=== PATIENT | female | born 1985 | race Caucasian/White ===

== ENCOUNTER → 2023-05-20 07:44 | Outpatient (REF) | payer BC, SELFPAY | LOC: RAD 07:44 | PROVIDERS: ATTENDING PHYSICIAN Emergency Medicine | DX: I10 Essential (primary) hypertension (principal) | CPT/HCPCS: 93975 ==

== ENCOUNTER 2024-06-27 20:26 | Day surgery (SDC) | payer BC, SELFPAY ==
[2024-06-27 12:37] VITALS: BP 132/87
[2024-06-27 13:04] LABS: % Basophils 0.4 % (0-2); % Eosinophils 1.2 % (0-6); % Immature Granulocytes 0.2 % (0-0.5); % Lymphocytes 15.6 % (20.5-51.1); % Monocytes 6.7 % (1.7-9.3); % Neutrophils 75.9 % (42.2-75.2); Absolute Basophils 0.1 10^3/uL (0-0.2); Absolute Eosinophils 0.2 10^3/uL (0-0.7); Absolute Lymphocytes 1.9 10^3/uL (1.2-3.4); Absolute Monocytes 0.8 10^3/uL (0.1-0.6); Absolute Neutrophils 9.4 10^3/uL (1.4-6.5); Hematocrit 40.7 % (37.0-47.0); Hemoglobin 14.1 g/dL (12.0-16.0); Mean Corp Hgb Conc. 34.6 g/dL (33.0-37.0); Mean Corpuscular Hgb 28.8 pg (27.0-31.0); Mean Corpuscular Volume 83.2 fL (81.0-99.0); Mean Platelet Volume 10.3 fL (7.4-10.4); Nucleated Red Blood Cells % 0 %; Platelet Count 296 10^3/uL (130-400); Red Blood Cell Count 4.89 10^6/uL (4.20-5.40); Red Cell Dist. Width 13.2 % (11.5-14.5); White Blood Cell Count 12.3 10^3/uL (4.8-10.8)
[2024-06-27 13:14] LABS: HCG, Serum Qualitative Screen Negative; Urine Albumin Negative (Neg - Trace); Urine Bilirubin Negative (Negative); Urine Character Clear (Clear); Urine Color Yellow; Urine Glucose Negative (Negative); Urine Ketone Negative (Negative); Urine Leukocyte 2+ (Negative); Urine Nitrite Negative (Negative); Urine Occult Blood 2+ (Negative); Urine Urobilinogen Negative (Neg - 1+)
[2024-06-27 13:23] LABS: ALT (SGPT) 197 U/L (0-35); AST (SGOT) 290 U/L (14-36); Albumin 4.6 g/dl (3.5-5.0); Alkaline Phosphatase 143 U/L (38-126); Blood Urea Nitrogen 13 mg/dl (7-17); Calcium 9.6 mg/dl (8.4-10.2); Carbon Dioxide 25 mmol/L (22-30); Glucose 102 mg/dl (70-99); Lipase 316 U/L (23-300); Total Bilirubin 1.2 mg/dl (0.2-1.3); eGFR > 60.00
[2024-06-27 13:36] LABS: Chloride 105 mmol/L (98-107); Potassium 3.9 mmol/L (3.5-5.1); Sodium 142 mmol/L (135-145)
[2024-06-27 14:06] LABS: Total Protein 7.9 g/dl (6.3-8.2)
[2024-06-27 14:20] LABS: Urine Squamous Cell >30 /LPF (Few)
[2024-06-27 14:21] LABS: Urine Urothelial Cell 0-2 /LPF (FEW)
[2024-06-27 14:22] LABS: Urine White Cell 16-20 /HPF (0-5)
[2024-06-27 14:23] LABS: Urine Bacteria Few (Negative); Urine Red Blood Cell 0-2 /HPF (0-2)
--- NOTE | 2024-06-27 15:30 | ED.GENMED ---
History of Present Illness
General
Chief Complaint: Abdominal Symptoms
Time Seen by Provider: 06/27/24 15:30
History of Present Illness
History of Present Illness:
TIME OF INITIAL ENCOUNTER: 3:30 PM
HPI: 3 days ago, the patient had rather significant epigastric discomfort. At times she has pain that radiates to both shoulder blades. This morning she had 2 episodes of similar pains. Currently she feels improved. Of note she is on Zepbound.
She did vomit once recently that she feels is related to Zepbound use. No fevers. No prior abdominal surgeries.
EXAM:
GENERAL: Well appearing in no distress, elevated BMI
HEENT: Moist oral mucosa
CARDIOVASCULAR: No murmurs, normal heart rate, regular rhythm, No chest wall tenderness
PULMONARY: No respiratory distress, breath sounds are clear and equal
ABDOMEN: Soft with no peritoneal signs, no significant tenderness, negative Akhtar sign
NEUROLOGIC: Excellent strength all extremities, no coordination deficits
PSYCHIATRIC: Appropriate mental status, normal insight and judgement
EXTREMITIES: Nontender, no edema, moves all extremities equally
SKIN: No rash, no lesions
NUMBER AND COMPLEXITY OF PROBLEMS ADDRESSED AT THE ENCOUNTER
� Chronic conditions affecting care: Anxiety, hyperlipidemia, on Zepbound
� Acute Exacerbation and/or Progression of Chronic Illness: This is an acute problem
� Differential Diagnosis includes: Medication side effect (on Zepbound), GERD, biliary colic, cholecystitis
AMOUNT AND/OR COMPLEXITY OF DATA TO BE REVIEWED AND ANALYZED
� I performed an independent evaluation of and my interpretation is:
EKG:
CT:
X-rays:
Laboratory Studies: White count 12.3, hemoglobin normal, chemistries show elevated transaminases with alk phos of 143, lipase minimally elevated at 316, hCG negative, urinalysis appears to be contaminated however repeat
urinalysis does not show any clear sign of infection
Other: Ultrasound shows numerous gallstones with some gallbladder wall thickening
� Review of other/old records: I reviewed records, the patient was admitted here with hypertension on magnesium in 2019
� Clinical information was obtained by an independent historian: None needed
� Prescriptions/Medications Considered but not given:
� Further testing considered but not performed:
RISK OF COMPLICATIONS AND/OR MORBIDITY OR MORTALITY OF PATIENT MANAGEMENT
� Social determinants of health affecting care: Lives at home
� Discussion with other providers: Discussed case with Dr. Young who ultimately accepts to his service for further management. He recommends clears and then n.p.o. after midnight, Zosyn (however will give Cipro/Flagyl as
patient has a penicillin allergy)
� Escalation of care including admission/observation vs risk of discharge considered: The patient's labs show elevated transaminases with borderline lipase and alk phos. Ultrasound imaging will be obtained. She appears
comfortable currently but had 3 episodes of upper abdominal pain radiating to the back over the last 3 days.
ANY OTHER UPDATES:
Past History
Past History
ED Past Medical History: None
Social History
Tobacco: Non-smoker
Personal:
Phy Exam
Physical Exam
Physical Exam:
See HPI
Course
Orders/Labs/Results
Orders:
Orders
06/27/24 12:42
Test Result ONCE
06/27/24 12:50
Complete Blood Count/With Diff Urgent
Comprehensive Metabolic Panel Urgent
HCG, Serum Qualitative Screen Urgent
Comment: Notify provider if positive test present
Lipase Urgent
Urinalysis Reflex To Culture Urgent
Date Specimen was Collected: 06/27/24
Time Specimen was Collected: 12:42
Urine Microscopic Reflex Cult Urgent
Urine Culture Urgent
DA Source: U
Specimen Description:
Date Specimen was Collected: 06/27/24
Time Specimen was Collected: 12:42
06/27/24 Dinner
Clear Liquid
At Your Request: Non-Participating
Does patient need a safe tray?: No
06/27/24 15:38
US Abdomen Complete/Upper Urgent
Comment:
Reason For Exam: epigastric pain; abnormal lfts
06/27/24 15:46
Urinalysis Reflex To Culture Urgent
Date Specimen was Collected: 06/27/24
Time Specimen was Collected: 15:43
Comment: REPEAT TEST ORDERED BY ER
Urine Microscopic Reflex Cult Urgent
06/27/24 18:20
Ciprofloxacin 400 mg/[id number] [Cipro 400 mg] 200 ml IV NOW
MetroNIDAZOLE 500 MG/100 ML [Flagyl 500 mg] 100 ml IV NOW
Abnormal Lab Results
06/27/24 06/27/24
12:50 15:46
WBC 12.3 H 10^3/uL
(4.8-10.8)
Absolute Neuts (auto) 9.4 H 10^3/uL
(1.4-6.5)
Absolute Monos (auto) 0.8 H 10^3/uL
(0.1-0.6)
Neutrophils % 75.9 H %
(42.2-75.2)
Lymphocytes % 15.6 L %
(20.5-51.1)
Glucose 102 H mg/dl
(70-99)
AST 290 H U/L
(14-36)
ALT 197 H U/L
(0-35)
Alkaline Phosphatase 143 H U/L
(38-126)
Lipase 316 H U/L
(23-300)
Ur Occult Blood Reflex 2+ A 1+ A
(Negative) (Negative)
Leukocyte Esterase Rfl 2+ A
(Negative)
Urine RBC 3-6 A /HPF
(0-2)
Urine WBC (Reflex) 16-20 A /HPF
(0-5)
Urine Bacteria (Reflex) Few A Few A
(Negative) (Negative)
Urine Albumin (Reflex) 1+ A
(Neg - Trace)
06/27/24 12:50
06/27/24 12:50
Vital Signs
Initial and Last Documented VS:
Initial Vital Signs
Temp Pulse Resp BP Pulse Ox
36.9 C 74 16 132/87 100
06/27/24 12:37 06/27/24 12:37 06/27/24 12:37 06/27/24 12:37 06/27/24 12:37
Last Documented Vital Signs
Temp Pulse Resp BP Pulse Ox
36.9 C 67 17 134/87 100
06/27/24 15:48 06/27/24 17:51 06/27/24 17:51 06/27/24 17:51 06/27/24 17:51
*Critical Care Note
Total Time (30-74mins, 75-104mins- exclusive of procedures): Not Applicable
ED Attending Note
-
Portions of this chart may have been created with voice recognition software.� Occasional wrong word or��sound alike� substitutions may have occurred due to the inherent limitations of voice recognition software.
Discharge Plan
Departure
Patient Disposition: Admit
Date of Disposition: 06/27/24
Time of Disposition: 18:21
Presentation/result/management discussed w/ accepting MD/DO: dr young
Discharge Problem:
Calculous cholecystitis
Prescriptions:
No Action
Theragen Tablet
1 tab PO DAILY
amlodipine 5 mg Tablet
5 mg PO DAILY
biotin 1 mg Tablet
1 mg PO DAILY
Zepbound 5 mg/0.5 mL Pen Injector
5 mg SC SA
Patient Comments:
06/27/24: Patient skipped dose last thursday(06/25/24) due to symptoms
Referrals:
Sondra High MD [Family Provider] -
Interventions
Interventions:
*Risk Screen - Suicide Last Done: 06/27/24 12:37
*General Assessment Last Done: 06/27/24 15:50
*Neglect/Abuse Screening Last Done: 06/27/24 12:37
*ED- Fall Risk Assessment Last Done: 06/27/24 15:50
*ED COVID-19 Vaccine History Last Done: 06/27/24 15:50
LL-Eehsqh-Qjshrvlmaa Assessment Last Done: 06/27/24 15:51
Discharge Date and Time
Print Language: BELARUSIAN
[2024-06-27 15:47] VITALS: BMI 37.5
[2024-06-27 15:48] VITALS: BP 126/86
[2024-06-27 15:59] LABS: Urine Albumin 1+ (Neg - Trace); Urine Bilirubin Negative (Negative); Urine Character Clear (Clear); Urine Color Yellow; Urine Glucose Negative (Negative); Urine Ketone Negative (Negative); Urine Leukocyte Negative (Negative); Urine Nitrite Negative (Negative); Urine Occult Blood 1+ (Negative); Urine Specific Gravity 1.015 (<1.030); Urine Urobilinogen Negative (Neg - 1+)
[2024-06-27 16:25] LABS: Urine Bacteria Few (Negative); Urine White Cell 0-2 /HPF (0-5)
[2024-06-27 17:51] VITALS: BP 134/87
[2024-06-27 19:26] VITALS: BP 135/83
[2024-06-27] MEDS: FLAGYL 500 MG 100 IV (19:31)
--- NOTE | 2024-06-27 19:56 | HPS.HSE ---
Addendum entered and electronically signed by Yash Garcia MD 06/28/24 12:41:
I saw and examined the patient.
The Veneer Stapler's note was reviewed and I agree with the note with the following additions/corrections.
Comment: 39F on zepbound with 60lb wt loss over 4 months with acute onset epigastric smith that began Musa after eating. Pain resolved but has returned intermittently since then, always after eating high fat foods. Presently she has no pain. On
exam she has no ttp. No fever, no leukocytosis. LFTs mildly elevated. US with stones,/sludge mild GBWT, no PCF, no ductal dilatation. D/w pt and . She is high risk for recurrence. Surgery offered today vs DC home and elective surgery as soon
as time permits. Patient prefers to proceed with surgery today. [facility] for rCCY with cholangiogram. Informed consent obtained. Procedure and expected recovery discussed with pt and . All ?s answered.
Original Note:
Family Physician
-
Family Physician: Sondra High MD
Chief Complaint
-
Abdominal pain
History of Present Illness
a 39 years old female with PMH of HTN, present in ER with a complain of abdominal pain. Symptoms started Thursday night with epigastric discomfort, heartburn and pain radiating to the back. Another 2 episodes this morning that similar to Thursday
nights. During exam time patient feels improved with no pain. Some nausea and constipation associated but she feels that could be related to Zebound that she is using for weight loss. Denies diarrhea, fever, chills, sob, chest pain, urinary symptoms
or any other symptoms.
Medical History
Past Medical History
Past Medical History: Reports HTN
Past Surgical History: Reports None
Social History
Tobacco: Former Smoker
Alcohol: None
Drug: None
Personal:
Living: With Family
Employment: Employed
Family History
Family History: Not pertinent
Allergies / Home Medications
Allergies reflects when Allergies were last updated in [employer].
Home Medications with original date entered in [employer]
Allergy/Medication List:
Patient Allergies
Allergy/AdvReac Type Severity Reaction Status Date / Time
amoxicillin Allergy Rash Verified 06/27/24 15:48
Home Medications Table - record
�Medication �Instructions �Recorded �Confirmed
amlodipine 5 mg tablet 5 mg PO DAILY 06/27/24 06/27/24
biotin 1 mg tablet 1 mg PO DAILY 06/27/24 06/27/24
therapeutic multivitamin 1 tab PO DAILY 06/27/24 06/27/24
tirzepatide (weight loss) 5 mg/0.5 5 mg SC SA 06/27/24 06/27/24
mL subcutaneous pen injector
(Zepbound)
Review of Systems
-
Constitutional: Reports No Symptoms
Respiratory: Reports No Symptoms
Cardiac: Reports No Symptoms
Abdomen/GI: Reports Abdominal Pain, Nausea and Constipated
Musculoskeletal: Reports No Symptoms
Physical Exam
Vital Signs
Vital Signs
Temp Pulse Resp BP Pulse Ox
98.4 F 65 18 135/83 100
06/27/24 15:48 06/27/24 19:26 06/27/24 19:26 06/27/24 19:26 06/27/24 19:26
Physical Exam
General: No Apparent Distress
Respiratory: Clear
Cardiac: Regular Rhythm
GI: Soft, Non Tender, Non Distended and Normal Bowel Sounds
Musculoskeletal: No Edema
Neuro: Awake and AO x 3
Laboratory Results
-
06/27/24 12:50
06/27/24 12:50
Laboratory Results
Total Bilirubin 1.2 mg/dl (0.2-1.3) 06/27/24 12:50
AST 290 U/L (14-36) H 06/27/24 12:50
ALT 197 U/L (0-35) H 06/27/24 12:50
Alkaline Phosphatase 143 U/L (38-126) H 06/27/24 12:50
Lipase 316 U/L (23-300) H 06/27/24 12:50
Data Reviewed
-
Diagnostic Radiology: Discussed with Patient
Lab Data: Discussed with Patient
Impression/Plan
-
Abdomen Ultrasound shows numerous gallstones with mild gallbladder wall thickening, however a negative Akhtar's sign. Acute cholecystitis cannot be excluded.
IMPRESSION:
Calculous cholecystitis
PLAN:
Admit/ observation/ med-surg (/ [facility]/ general surgery)
NPO
IVF
Received Flagyl and Levaquin in ER
antiemetics as needed
analgesics as needed
elevated transaminases
Will c/w IVF and repeat lab in am
DVT prophylaxis Lovenox
Code status: Full code
[2024-06-27] MEDS: LEVAQUIN 150 IV (20:34)
[2024-06-27] MEDS: LR 1000 IV (22:27)
[2024-06-27 22:58] VITALS: BP 115/83
[2024-06-28] VITALS (13 sets, daily range): BP systolic 111–144; BP diastolic 53–82
[2024-06-28 05:31] LABS: Hematocrit 35.6 % (37.0-47.0); Hemoglobin 12.6 g/dL (12.0-16.0); Mean Corp Hgb Conc. 35.4 g/dL (33.0-37.0); Mean Corpuscular Hgb 29.5 pg (27.0-31.0); Mean Corpuscular Volume 83.4 fL (81.0-99.0); Mean Platelet Volume 10.6 fL (7.4-10.4); Platelet Count 246 10^3/uL (130-400); Red Blood Cell Count 4.27 10^6/uL (4.20-5.40); Red Cell Dist. Width 13.2 % (11.5-14.5); White Blood Cell Count 9.7 10^3/uL (4.8-10.8)
[2024-06-28 05:55] LABS: ALT (SGPT) 226 U/L (0-35); AST (SGOT) 131 U/L (14-36); Albumin 3.8 g/dl (3.5-5.0); Alkaline Phosphatase 118 U/L (38-126); Blood Urea Nitrogen 8 mg/dl (7-17); Calcium 9.1 mg/dl (8.4-10.2); Carbon Dioxide 23 mmol/L (22-30); Chloride 108 mmol/L (98-107); Estimated Creatinine Clearance 106 ml/min; Glucose 96 mg/dl (70-99); Potassium 3.9 mmol/L (3.5-5.1); Sodium 141 mmol/L (135-145); Total Protein 6.6 g/dl (6.3-8.2); eGFR > 60.00
[2024-06-28] MEDS: LR 1000 IV (09:19)
--- NOTE | 2024-06-28 10:08 | CM ---
CM met with pt and spouse bedside
They reside in a 2SH with 1STE, 12 steps upstairs
Pt is indep with her ADLs, denies use of DMEs, drives+
Works out of home at [facility] [employer]
Denies financial insecurities
PCP- Sondra High
Rx- [facility]
Pt is OBS- OBS notice provided
Discharge Disposition- home, no needs anticipated
--- NOTE | 2024-06-28 14:46 | W.IMMPOSTOP ---
Surgical Immed Post Op Note
-
Primary Surgeon: Jose
Assisting: Amari CABALLERO
Pre-op Diagnosis: Biliary colic
Post-op Diagnosis: Same
Procedure Performed: Robot assisted laparoscopic cholecystectomy with cholangiogram
Anesthesia Type: GETA
Specimen / Cultures: Gallbladder
Estimated Blood Loss: 5cc
Complications: None immediate
Operative Findings: Softly distended gallbladder with mild surrounding fibrosis and thin filmy omental adhesions; cholangiogram initially with questionable filling defect, glucagon 1mg given, saline flush and repeat cholangiogram without filling
defects, good opacification of biliary tree and duodenum
--- NOTE | 2024-06-28 14:50 | OR.RPT ---
Operative Report
Operative Report
Primary Surgeon: Jose
Assisting: Amari CABALLERO
Pre-op Diagnosis: Biliary colic
Post-op Diagnosis: Same
Procedure Performed: Robot assisted laparoscopic cholecystectomy with cholangiogram
Anesthesia Type: GETA
Specimen / Cultures: Gallbladder
Estimated Blood Loss: 5cc
Complications: None immediate
Operative Findings: Softly distended gallbladder with mild surrounding fibrosis and thin filmy omental adhesions; cholangiogram initially with questionable filling defect, glucagon 1mg given, saline flush and repeat cholangiogram without filling
defects, good opacification of biliary tree and duodenum
Date of Surgery:� 06/28/24
Indications: This 39F developed symptomatic cholelithiasis. Lab work showed elevated liver enzymes. Imaging showed no ductal dilation. Laparoscopic cholecystectomy with robotic assist with cholangiogram was elected.
Description of procedure: The patient was placed on the operating table in the supine position. General anesthesia was induced. A time-out was completed verifying correct patient, procedure, site, positioning, and special equipment prior to
beginning this procedure. An orogastric tube was placed. The abdomen was prepped and draped in the usual sterile fashion. A stab incision was made in left upper quadrant and the Veress needle was inserted. Proper position was confirmed by aspiration
and saline meniscus test. The abdomen was insufflated with carbon dioxide to a pressure of 12mmHg. The patient tolerated insufflation well.
A 8mm trocar was then inserted above the umbilicus. The laparoscope was inserted and the abdomen inspected. No injuries from initial trocar placement or Veress needle insertion were noted. Additional 8mm trocars were then inserted in the following
locations: two in the right lower quadrant and to the left of the umbilicus and just above. The table was placed in the reverse Trendelenburg position with the right side up. The abdomen was inspected and no abnormalities were found. Filmy omental
adhesions to the gallbladder were taken down with electrocautery. The dome of the gallbladder was grasped with an atraumatic grasper and retracted over the dome of the liver. The infundibulum was then grasped with an atraumatic grasper and
retracted toward the right lower quadrant. This maneuver exposed Calot�s triangle. The peritoneum overlying the gallbladder infundibulum was then incised and the cystic duct and cystic artery identified and circumferentially dissected so that a
clear view of the liver was achieved through a window between the cystic duct an cystic artery. At this time, the only two structures going into the gallbladder were the cystic artery and cystic duct. The common duct was identified with ICG and
protected.
A isa was made in the cystic duct and a cholangiogram catheter was passed through a isa in the abdominal wall and threaded into the cystic duct and secured with a 2-0 silk tie. A cholangiogram was obtained that showed a questionable filling
defect. 1g glucagon was given IV and 2 minutes were allowed to elapse. The duct was thoroughly flushed with saline. A repeat cholangiogram showed good opacification of the biliary system and duodenum without filing defects. The catheter was
withdrawn.
The cystic duct was then doubly clipped and divided. The cystic artery was controlled with bipolar and divided. The gallbladder was then dissected from its peritoneal attachments by electrocautery. The gallbladder was removed using an endoscopic
retrieval bag placed through the umbilical port. The gallbladder was passed off the table as a specimen. The gallbladder fossa was closely inspected. There was no evidence of bleeding from the gallbladder fossa or cystic artery or leakage of the
bile from the cystic duct stump. The umbilical trocar site was closed at the fascial level with 2-0 PDS. Secondary trocars were removed under direct vision and noted to be hemostatic. The abdomen was allowed to collapse. The skin was closed with
subcuticular sutures of 4-0 monocryl and topical skin adhesive. The orogastric tube was removed.
The patient tolerated the procedure well and was taken to the postanesthesia care unit in stable condition.
The assistance of Amari CABALLERO was required due to the complexity of the procedure. During the procedure she assisted with retraction, resection, and closure of the wound.
[2024-06-28] MEDS: ZOFRAN 4 MG IV (15:14)
[2024-06-28] MEDS: COMPAZINE 5 MG IV (15:41)
[2024-06-28] MEDS: LOVENOX 40 MG SC (17:19)
[2024-06-28] MEDS: LR IV ×2 (20:58→21:02)
[2024-06-29 03:10] VITALS: BP 132/71
[2024-06-29 07:00] VITALS: BP 133/76
[2024-06-29 11:00] VITALS: BP 135/79
--- NOTE | 2024-06-29 12:28 | W.PN.GS2 ---
Today's Communication / Plan
-
DC home
Assessment / Plan
-
39F POD1 s/p rCCY with cholang for biliary colic
Doing well post-op, meets criteria for DC
Subjective Data
-
Date of Service: June 29, 2024
AFVSS, ambulating, voiding, jameson PO, pain controlled
Objective Data
-
Intake and Output
06/28/24 06/29/24 06/30/24
06:59 06:59 06:59
Intake Total 1000 / 1000 1540 / 1540 480 / 480
Balance 1000 / 1000 1540 / 1540 480 / 480
Intake:
Oral fluids 1440 / 1440 480 / 480
IV fluids (Total) 1000 / 1000 100 / 100
normosol 100 / 100
Other:
Number of approximated MODERATE 2
amounts of urine
How many times incontinent 2
MODERATE amount urine
Vital Signs
Temp Pulse Resp BP Pulse Ox
98.3 F 71 18 135/79 100
06/29/24 11:00 06/29/24 11:00 06/29/24 11:00 06/29/24 11:00 06/29/24 11:00
Lab Results
06/28/24 05:21
06/28/24 05:21
Calcium 9.1 mg/dl (8.4-10.2) 06/28/24 05:21
Total Bilirubin 1.0 mg/dl (0.2-1.3) 06/28/24 05:21
AST 131 U/L (14-36) H 06/28/24 05:21
ALT 226 U/L (0-35) H 06/28/24 05:21
Alkaline Phosphatase 118 U/L (38-126) 06/28/24 05:21
Total Protein 6.6 g/dl (6.3-8.2) 06/28/24 05:21
Albumin 3.8 g/dl (3.5-5.0) 06/28/24 05:21
Physical Exam
-
Gen: NAD
Abd: soft, obese, approp ttp, incisions cdi
Patient has a lovett catheter: No
Patient has a central line: No
--- NOTE | 2024-06-29 12:30 | W.DS.TRANS ---
DC Summary - Collections Technician
-
Discharge Instructions:
Instructions:
Stand-Alone Forms:
Changes to Home Medications: No
Discharge Medications:
DC Medications w/original date entered in [employer]
amlodipine 5 mg tablet 5 mg PO DAILY 06/27/24
biotin 1 mg tablet 1 mg PO DAILY 06/27/24
therapeutic multivitamin 1 tab PO DAILY 06/27/24
tirzepatide (weight loss) 5 mg/0.5 mL subcutaneous pen injector (Zepbound) 5 mg SC SA 06/27/24
Home Medication Changes
Pending Results: No
--- NOTE | 2024-06-29 13:12 | CM ---
Patient seen at bedside with patient . Patient also seen by Surgery and discharge planned for today. Patient at bedside. Patient states that she does not have any further needs at this time. Physician indicated that he has changed
patient to same day surgery and CM will continue to follow for discharge planning needs.
Plan;home with no needs
== END 2024-06-29 13:18 | disposition home or self-care (01) ==
LOC: PACU 20:26
PROVIDERS: Nurse Practitioner Family; Student in an Organized Health Care Education/Training Program; ATTENDING PHYSICIAN Surgery; EMERGENCY PHYSICIAN Emergency Medicine; FAMILY PHYSICIAN Emergency Medicine
DX: K80.00 Calculus of gallbladder with acute cholecystitis without obstruction (principal); R74.01 Elevation of levels of liver transaminase levels; I10 Essential (primary) hypertension; Z87.891 Personal history of nicotine dependence
CPT/HCPCS: 47563; 88304; 74300; 76000; 76700; 80053; 81003; 81015; 83690; 84703; 85025; 85027; 87086; 96365; 99285; A4300; G0378; J1610